=== PATIENT | male | born 2000 | race Caucasian/White ===

== ENCOUNTER 2023-10-13 19:50 | Emergency (ER) | payer OTHER ==
[2023-10-13 20:06] VITALS: BP 129/77; TEMP 97.9
--- NOTE | 2023-10-13 20:36 | ERPHSYRPT ---
- History of Present Illness Time Seen by Provider: 10/13/23 20:10 Source: patient Exam Limitations: no limitations Patient Subjective Stated Complaint: making a mold of my ear, have alginate molding powder in ear. Mom tried to flush it out with baking soda, peroxide and water. Triage Nursing Assessment: pt ambulated into ER without diff, parents at bedside. Pt was making a mold of his left ear using alginate molding powder. Pt states, "I can't hear out of my left ear at all". Mom tried to flush it out with baking soda, peroxide and water but did not get anything out. Mom states "I could see something blue/hawkins before I tried to flush it out". When looking into the left ear, I see a white residue in the ear but I do not visualize any blue/hawkins in the ear. Physician History: 22-year-old presented in the ER with possible foreign body left ear. Patient was apparently making ear molding which got stuck in there. He was able to pull out some but has feeling of foreign body sensation in the canal and decreased hearing. Patient mom flushed left ear with water/baking soda/peroxide prior to arrival. Does have history of some seasonal allergies/congestion. Allergies/Adverse Reactions: No Known Drug Allergies Allergy (Unverified 10/13/23 20:20) Hx Tetanus, Diphtheria Vaccination/Date Given: Yes Hx Influenza Vaccination/Date Given: No Hx Pneumococcal Vaccination/Date Given: No Travel Risk - International Travel Have you traveled outside of the country in past 3 weeks: No - Emerging Infectious Disease Are you exhibiting symptoms associated with any current EIDs: No - Review of Systems Constitutional: No Symptoms Eyes: No Symptoms Ears, Nose, & Throat: Hearing Changes Respiratory: No Symptoms Cardiac: No Symptoms Musculoskeletal: No Symptoms Skin: No Symptoms Neurological: No Symptoms Endocrine: No Symptoms Hematologic/Lymphatic: No Symptoms - Past Medical History Pertinent Past Medical History: No - Past Surgical History Past Surgical History: No - Social History Smoking Status: Never smoker Exposure to second hand smoke: No Drug Use: none - Nursing Vital Signs Nursing Vital Signs: Initial Vital Signs Temperature 97.9 F 10/13/23 20:05 Pulse Rate 78 10/13/23 20:05 Respiratory Rate 18 10/13/23 20:05 Blood Pressure 129/77 10/13/23 20:05 O2 Sat by Pulse Oximetry 99 10/13/23 20:05 Pain Scale Pain Intensity 2 - Physical Exam General Appearance: no apparent distress, alert Eye Exam: bilateral eye: normal inspection, PERRL, EOMI Ear Exam: right ear: canal normal, left ear: erythema (Mild erythema of the canal with some residual white stuff/baking soda), bilateral ear: auricle normal, TM normal, other (Bilateral negative mastoid tenderness.) Nasal Exam: normal inspection Throat Exam: normal, pharynx normal, No dental tenderness Neck Exam: normal inspection, non-tender, supple, full range of motion Cardiovascular/Respiratory Exam: normal breath sounds, regular rate/rhythm Neurologic Exam: alert, oriented x 3, cooperative Skin Exam: normal color SpO2 Interpretation: normal SpO2: 99 O2 Delivery: Room Air - Progress Progress: unchanged Progress Note: 10/13/23 20:34 22-year-old is evaluated in the ER for left ear pressure/decreased hearing after he was trying to make ear molding and had some residual stuff left in. It was rinsed/flushed prior to arrival with water/peroxide/baking soda. I did not appreciate any foreign body with molding, small residual baking soda. As small amount of fluid behind the eardrum. Eardrum is intact. It is possible patient has middle ear fluid from seasonal allergies. I would give an steroid here and recommended short course of steroid and Flonase/outpatient follow-up with primary care and ENT. Counseled pt/family regarding: diagnosis, need for follow-up Medical Desision Making - Risk of complications The pt has a mod risk of morbidity or mortality based on: Need for prescription drug management - Departure Departure Disposition: Home Clinical Impression: Pressure sensation in ear Condition: Stable Critical Care Time: No Referrals: RENATE HINTON [Primary Care Provider] - Follow up with PCP 1 day Additional Instructions: Follow-up with primary care/ENT for reevaluation. Use daily Flonase 1 squirt each nostril. Take Tylenol as needed. Return to ER for worsening. Prescriptions: Prednisone 20 mg [Deltasone 20 mg] 60 mg PO DAILY 5 Days #15 tablet
[2023-10-13] MEDS ORDERED: DELTASONE 20 MG ONE (20:37)
[2023-10-13] MEDS: DELTASONE 20 MG PO ONE (20:41)
[2023-10-13 20:56] VITALS: PULSE 72; RESP 16; O2SAT 98
== END 2023-10-13 20:56 | disposition home or self-care (01) ==
LOC: ED 19:50
DX: H93.8X2 Other specified disorders of left ear (principal); Z79.52 Long term (current) use of systemic steroids
CPT/HCPCS: 99281; A9270-GY